=== PATIENT | male | born 1985 ===

== ENCOUNTER 2021-04-07 15:22 | Outpatient (CLI) | payer OTHER ==
[2021-04-07 16:13] VITALS: BP 124/80
--- NOTE | 2021-04-07 16:13 | SLEEP CARE CONSULTATION ---
Information from patient questionnaire entered by Leonie Hubbard. I have reviewed and concur with the information entered by Leonie Hubbard. This document represents the service I personally performed and the decisions made by me, Sayda Aguirre ARNP. History of Present Illness Service Date and Time: 04/07/2021 1522 Reason for Visit: New patient Chief Complaint: reports: Unrefreshed sleep, Snoring, Excessive daytime sleepiness, Observed pauses in breathing, Fatigue, Frequent awakenings at night Date of Onset: 5 years plus Usual bedtime: in bed by 11pm , asleep by 1am Time it takes to fall asleep: 2 hours Snores at night: Yes Observed to quit breathing while asleep: Yes Sleeps alone due to snoring: No Number of times waking at night: 1-2 Reasons for waking at night: reports: Snoring, Other (unknown reasons, wierd dreams, excessive sweating). denies: Choking, Gasping for air Toss, Turn, or Twitch while sleeping: Yes Recalls having dreams: Yes Usually gets out of bed at: 8:30 - 9 am Feels refreshed in the morning: No Morning headache: No Sleepy or fatigued during the day: Yes Ever fallen asleep while driving: No (once in while on longer car trips) Takes day naps: No Dreams during day naps: Yes Prior sleep studies: No Additional HPI information: I had the pleasure of seeing STIVEN SHUKLA today regarding the possibility of him having a sleep disorder. His current complaints are excessive daytime sleepiness, fatigue, frequent night awakenings, observed pauses in breathing, snoring and unrefreshed sleep. He states he doesn't sleep well and his has seen him stop breathing and has to wake him up to breath. He has noted when falling asleep on his back that he will start to hear snoring and then the back of his throat vibrates. His has heard him choking and gasping in his sleep. He usually wakes up feeling tired, doesn't matter how much sleep he gets. He takes a couple of hours to get to sleep nightly. He has tried watching certain videos that will help him fall asleep but if he does not watch these he still cannot go to sleep for at least 2 hours. He normally wakes up 1-2 times a night and have difficulty falling back to sleep. He will occasionally use 2 pills OTC Melatonin to help him go to sleep. This is effective but he feels more groggy the next day when he uses the melatonin. - Parasomnia Symptoms Ever been unable to move upon waking from sleep: Yes Walks in sleep: No Talks in sleep: Yes Ever acted out dreams in sleep: Yes Ever felt weak in the knees when startled or emotional: Yes Bothered by creepy, crawly, restless sensations in legs: No Problems with memory or concentration: Yes (usually at work on computer he will doze off and memory affected) Subjective Initial [place] Sleepiness Scale score: 19 (in 2020) Past Medical History Past Medical History: reports: Gout, Other Social History The patient's occupation is a Active . Patient is and lives in [place]. Have you smoked in the past 12 months: No Years of smokin Quit date: 2018 Alcohol use: Yes Alcohol amount and frequency: 1-2 every other month or so Caffeine use: Yes Caffeine amount and frequency: 2 drinks a day Family History Family history of sleep disordered breathing: Yes Family Hx Sleep Apnea: Mother: Snoring Allergies and Home Medications Drug allergies reviewed: Yes (NKDA) Home medication list reviewed: Yes (no daily medications) Review of Systems Weight gain over past 5 years: 25 Cardiovascular: denies: high blood pressure Gastrointestinal: reports: heartburn Neurological: denies: headaches Psychiatric: denies: anxiety, depression, mood disorder Ear/Nose/Throat: reports: wisdom teeth removed. denies: tonsillectomy Endocrine: denies: thyroid disease Musculoskeletal: reports: joint pain, neck pain, back pain Immunologic: reports: sneezing Physical Exam Blood Pressure: 124/80 Cuff size: wrist Heart Rate: 88 O2 Saturation: 97 Height: 6 ft Weight: 244 lb (with boots on) Body Mass Index: 33.0 BMI Classification: Obese Neck circumference: 17.1 (inches) Soft palate: long Hard palate: normal Uvula: normal Uvula visualization: 50% Mallampati Class II Tongue: enlarged in size with teeth holman on lateral edges Tonsils: 1+ Chin and jaw: normal size and position Neck: normal w/o lymphadenopathy or thyromegaly Heart: regular rate and rhythm Lungs: clear bilaterally Impression and Plan 1. Suspected Obstructive Sleep Apnea-Hypopnea Syndrome, as suggested by a history of loud and irregular snoring, observed cessation of breath while asleep, gasping or choking in sleep, unrefreshed sleep, cognitive impairment, and excessive daytime sleepiness. Narrow oropharynx and obesity are common predisposing factors for obstructive sleep apnea-hypopnea syndrome. I recommend proceeding to polysomnography to confirm the diagnosis and to assess severity. If the patient has significant sleep disordered breathing, a manual CPAP titration study will also be performed to find the optimal treatment pressure. I informed the patient of what the sleep studies involve and after some discussion, obtained agreement to proceed. The pathophysiology of obstructive sleep apnea-hypopnea syndrome was discussed with the patient and health risks of cardiovascular and cerebrovascular disease if not treated. AAS brochure for obstructive sleep apnea-hypopnea syndrome given and reviewed. Risks of drowsy driving discussed in detail and patient advised to avoid long distance driving and to lime puller at the first sign of drowsiness. Patient agreed to plan. * Schedule polysomnography +- manual CPAP titration study and return in 1-2 weeks after the study to discuss result and initiate therapy. * Avoid long distance driving or driving when feeling sleepy. * Avoid alcohol, sedative and muscle relaxant around bedtime. * Attempt to lose weight. * Review instructions provided by trained office staff on how to prepare for the sleep study. * Return for follow-up after sleep study completed. Counseling Topics: Weight loss health impact Visit Type: In Office Time Spent with Patient (minutes): 31 Provider Statement: I spent 100% of the Face to Face Visit with the patient with greater than 50% spent counseling the patient and coordination of care.
== END 2021-04-07 15:23 | disposition home or self-care (01) ==
LOC: SC 15:22
PROVIDERS: ATTEND Nurse Practitioner Family
DX: R06.83 Snoring (principal); R06.81 Apnea, not elsewhere classified; G47.8 Other sleep disorders; R41.89 Other symptoms and signs involving cognitive functions and awareness; G47.10 Hypersomnia, unspecified; Z87.891 Personal history of nicotine dependence; E66.9 Obesity, unspecified; Z68.33 Body mass index [BMI] 33.0-33.9, adult
CPT/HCPCS: 99203; 99212

== ENCOUNTER 2021-06-02 20:39 | Outpatient (CLI) | payer OTHER | END 2021-06-02 20:40 | disposition home or self-care (01) | LOC: SC 20:39 | PROVIDERS: ATTEND Nurse Practitioner Family | DX: R06.83 Snoring (principal); G47.10 Hypersomnia, unspecified; G47.8 Other sleep disorders; R06.81 Apnea, not elsewhere classified; E66.9 Obesity, unspecified; Z68.33 Body mass index [BMI] 33.0-33.9, adult | CPT/HCPCS: 95810 ==

== ENCOUNTER 2021-07-07 13:36 | Outpatient (CLI) | payer OTHER ==
--- NOTE | 2021-07-07 15:18 | SLEEP CARE CONSULTATION ---
Information from patient questionnaire entered by Leonie Hubbard. I have reviewed and concur with the information entered by Leonie Hubbard. This document represents the service I personally performed and the decisions made by , Sayda Aguirre ARNP. History of Present Illness Service Date and Time: 07/07/2021 1336 Initial [place] Sleepiness Scale score: 19 (in 2020) Current [place] Sleepiness Scale score: 15 Additional HPI information: STIVEN SHUKLA returns for follow up and results of the recently performed polysomnography. The patient was informed of the following findings: No significant sleep disordered breathing with an average AHI of 3.2 and a chris oxygen saturation of 89%. However his supine AHI was 11.0 and nonsupine at 2.05. I explained the pathophysiology behind obstructive sleep apnea. Patient does not have sleep apnea and was advised how weight gain could increase the risk of developing sleep apnea in the future. I strongly encouraged the patient to lose weight. Patient does not have significant sleep disordered breathing but has elevated AHI in supine position so advised positional therapy. Methods to achieve positional management therapy were discussed; such as, positioning with pillows, wearing a T-shirt with tennis balls sewn into the back, Rematee shirt, Zzomba belt and Slumberbump belt. Pamphlets provided on how to obtain the commercially available products. Patient has light to moderate snoring. Snoring can be reduced by weight loss. Weight loss is best achieved with diet consult. Patient instructed to contact PCP for referral. Snoring can also be treated with an oral appliance from a dentist. Advised to check insurance coverage. In addition, an ENT evaluation can be do to see if other treatment is indicated. Patient counseled not drink alcohol less than 4 hours before bedtime as it can increase snoring and apnea. Patient was cautioned about risks of drowsy driving until sleepiness symptoms resolve. Sleep Study - Results Type of Sleep Study: Polysomnography Prior sleep studies: No Polysomnography/Home Sleep Study results: IMPRESSION: The quality of the study is good. The patient had minimally reduced sleep efficiency. The sleep architecture was normal. Respiratory monitoring showed no significant sleep disordered breathing (AHI = 3.2) or hypoxia (chris oxygen saturation of 89%). The few respiratory events occurred almost exclusively during supine sleep (supine AHI = 11.0; non-supine = 2.05). Snore was light to moderate in intensity. There was no significant periodic leg movement of sleep. Cardiac rhythm was normal sinus rhythm without significant arrhythmia. No abnormal behavior (parasomnia) observed during the night. Allergies and Home Medications Home medication list reviewed: Yes (atorvastatin, Lexapro, allopurinol) Review of Systems Review of systems same as previous: Yes (no changes) Physical Exam Heart Rate: 76 O2 Saturation: 96 Height: 6 ft Weight: 250 lb (with boots/fatigues on) Body Mass Index: 33.9 BMI Classification: Obese Impression and Plan 1. Suspected Obstructive Sleep Apnea-Hypopnea Syndrome, as suggested by a history of loud and irregular snoring, observed cessation of breath while asleep, frequent awakening during the night, unrefreshed sleep, and excessive daytime sleepiness. Patient does not feel he slept normally that night and he states he sleeps the best when he is laying on his back. He had an elevated supine AHI of 11.0 with this current study. I would like to repeat with a home study to see if he would get a more normal night sleep with him sleeping on his back for the study. I recommend proceeding to polysomnography to confirm the diagnosis and to assess severity. I obtained agreement to proceed. The pathophysiology of obstructive sleep apnea-hypopnea syndrome was discussed with the patient and health risks of cardiovascular and cerebrovascular disease if not treated. * Schedule HST * Avoid long distance driving or driving when feeling sleepy. * Avoid alcohol, sedative and muscle relaxant around bedtime. * Attempt to lose weight. * Review instructions provided by trained office staff on how to prepare for the sleep study. * Return for follow-up after sleep study completed. Counseling Topics: Weight loss health impact Visit Type: In Office Time Spent with Patient (minutes): 20 Provider Statement: I spent 100% of the Face to Face Visit with the patient with greater than 50% spent counseling the patient and coordination of care.
== END 2021-07-07 13:37 | disposition home or self-care (01) ==
LOC: SC 13:36
PROVIDERS: ATTEND Nurse Practitioner Family
DX: G47.10 Hypersomnia, unspecified (principal); R06.83 Snoring; G47.8 Other sleep disorders; R06.81 Apnea, not elsewhere classified; E66.9 Obesity, unspecified; Z68.33 Body mass index [BMI] 33.0-33.9, adult
CPT/HCPCS: 99212; 99213

== ENCOUNTER 2021-07-21 13:52 | Outpatient (CLI) | payer OTHER | END 2021-07-21 13:53 | disposition home or self-care (01) | LOC: SC 13:52 | PROVIDERS: ATTEND Nurse Practitioner Family | DX: G47.33 Obstructive sleep apnea (adult) (pediatric) (principal); R09.02 Hypoxemia | CPT/HCPCS: 95806 ==

== ENCOUNTER 2021-08-06 12:56 | Outpatient (CLI) | payer OTHER ==
--- NOTE | 2021-08-06 13:07 | SLEEP CARE CONSULTATION ---
Information from patient questionnaire entered by Arleth Oneill. I have reviewed and concur with the information entered by Arleth Oneill. This document represents the service I personally performed and the decisions made by , Sayda Aguirre ARNP. History of Present Illness Service Date and Time: 08/06/2021 1300 Initial [place] Sleepiness Scale score: 19 (in 2020) Current [place] Sleepiness Scale score: 11 Additional HPI information: STIVEN SHUKLA returns via video Telehealth visit for follow up and results of the recently performed home sleep study. I explained the pathophysiology behind obstructive sleep apnea. We then spent quite a bit of time discussing different treatment options. For mild obstructive sleep apnea, surgery and oral appliance are alternatives to nasal CPAP therapy but in moderate or severe cases, nasal CPAP is the most effective and reliable treatment. Because apnea is primarily in supine position, then positional management therapy could be effective. Methods discussed such as positioning with pillows, using a T-shirt with tennis balls in the back, and shown commercial products that have a pillow format on back to prevent supine sleep. I reviewed the impact of weight changes on sleep apnea and strongly recommended losing weight. After some discussion, the patient opted to go with the nasal CPAP therapy. Nasal autoCPAP set at 4-15 cmH20 will be ordered with rationale explained. A manual titration study will be ordered if unable to find optimal pressure with office adjustments. I explained how CPAP machine works and what to expect when using the machine. Using CPAP every night in order to get used to it was emphasized. Patient advised to put CPAP mask on before getting into bed so as not to fall asleep without CPAP. To assist acclimation to CPAP use, it could also be used for a short time during day while reading or watching TV. The patient was instructed to call the CPAP supplier to discuss any mechanical problem that may occur. If the mask given is uncomfortable or is difficult to keep on through the night even with adjustment, contact the CPAP supplier as many will replace with another mask style if notified before 30 days. If snoring or perceives is not getting enough air or too much air from the machine, notify this office. Patient counseled not drink alcohol less than 4 hours before bedtime as it can increase snoring and apnea. Patient was cautioned about risks of drowsy driving until sleepiness symptoms resolve. Sleep Study - Results Type of Sleep Study: Home sleep study Prior sleep studies: Yes Year and Where: 2020 [facility] Polysomnography/Home Sleep Study results: Physician Impression: The quality of the study is good. The length of the study is adequate (> 240 minutes). Please also see the tabulated and graphic data. 1. Obstructive Sleep Apnea-Hypopnea (ICD-10 G47.33), mild, with an AHI of 9.1/hr and chris SaO2 of 86%. During the study, the patient had 5 apneas (5 obstructive, 0 central, 0 mixed) and 81 hypopneas. The longest episode lasted 75.5 seconds. The respiratory events occurred almost exclusively during supine sleep (supine AHI was 15.7 and non-supine, 1.38). 2. Hypoxemia (ICD-10 R09.02), mild, with the lowest oxygen saturation of 86 % and 5.6 minutes with SaO2 under 90%. Baseline oxygen saturation was normal (Average oxygen saturation was 93%). Allergies and Home Medications Home medication list reviewed: Yes (no changes) Review of Systems Review of systems same as previous: Yes (no changes) Physical Exam Vital signs obtained and entered by: Telehealth visit to reduce exposure during covid pandemic Height: 6 ft Impression and Plan 1. Obstructive Sleep Apnea-Hypopnea Syndrome, mild, with lowest oxygen saturation of 86%. Obviously this is the cause of the patients symptoms of unrefreshed sleep, and excessive daytime sleepiness. Positive pressure therapy could benefit his overall health and reduce risk for cardiovascular and cerebrovascular adverse events. As mentioned above, the patient will be started on nasal autoCPAP therapy with pressure set at 4-15 cmH2O. A manual titration study will be completed if unable to find optimal treatment pressure with office adjustments. Compliance guidelines also reviewed. A copy of compliance guidelines will be given for reference at check out. Because the apnea is more severe supine, I instructed to avoid sleeping supine using pillow positioning until able to start CPAP use. 2. Hypoxemia, mild, with the lowest oxygen saturation of 86 % and 5.6 minutes with SaO2 under 90%. His baseline oxygen saturation was normal with an average oxygen saturation of 93%. * Nasal auto CPAP therapy, pressure at 4-15 cm H2O. * Attempt to lose weight. * Avoid alcohol consumption near bedtime. * Avoid supine sleep until using CPAP. * The patient is again cautioned about driving until sleepiness completely resolves. * Return one month after CPAP obtained. I will assess response to therapy and compliance at that time. Counseling Topics: Spare mask, Weight loss health impact Visit Type: Telehealth Video Video Type: VSee Patient Location: Home Location of Provider: Office Patient agrees and consents to this telehealth visit type: Yes Patient agrees to have their insurance billed: Yes Time Spent with Patient (minutes): 20 Provider Statement: I spent 100% of the Telehealth Video Call with the patient with greater than 50% spent counseling the patient and coordination of care.
== END 2021-08-06 12:57 | disposition home or self-care (01) ==
LOC: SC 12:56
PROVIDERS: ATTEND Nurse Practitioner Family
DX: G47.33 Obstructive sleep apnea (adult) (pediatric) (principal)